=== PATIENT | female | born 1960 | race African-American/Black ===

== ENCOUNTER 2020-08-02 09:27 | Day surgery (SDC) | payer OTHER ==
[2020-07-30 14:23] VITALS: BMI 22.8
[2020-08-02 09:45] VITALS: TEMP 97.8
[2020-08-02 11:23] VITALS: BP 126/71; PULSE 58
== END 2020-08-02 11:25 | disposition home or self-care (01) ==
LOC: FASU-ENDO 09:27
PROVIDERS: ATTEND Internal Medicine Gastroenterology
PROC: 0DJD8ZZ Inspection of Lower Intestinal Tract, Via Natural or Artificial Opening Endoscopic (ICD-10-PCS; principal; 2020-08-02 10:18)
DX: Z12.11 Encounter for screening for malignant neoplasm of colon (principal); K64.0 First degree hemorrhoids; K57.30 Diverticulosis of large intestine without perforation or abscess without bleeding